=== PATIENT | female | born 2000 | race Hispanic/Latino ===

== ENCOUNTER 2024-12-17 15:33 | Emergency (ER) | payer SELFPAY ==
[2024-12-17 15:34] VITALS: BP 112/70; PULSE 78; RESP 18; TEMP 35.9; O2SAT 100; BMI 20.1
--- NOTE | 2024-12-17 16:42 | EX.ED.DYSGE1 ---
HPI History of Present Illness Chief Complaint: Lower Extremity Injury Narrative Narrative: Chief complaint and HPI: Left knee pain. 24-year-old female who is [place]-speaking without any past medical history presents for evaluation of left knee pain. Patient has close contact in the room translating. She declined official spud grader. Patient states that she has been having left knee pain after her accidentally laid down on it last night while sleeping. She states that he did not know she was in the bed. Triage note states that the patient is feeling paresthesias however she denies any paresthesias, numbness/tingling, weakness. Review of systems: See HPI Medications: As listed on the chart Allergies: As listed on the chart PFSH: Per chart Vital signs: As listed on the chart. Reviewed. Physical exam: Gen: A&O x3, NAD Head: Normocephalic, atraumatic Eyes: No sclera icterus, conjunctiva clear ENT: Moist mucous membranes CV: Regular rate Resp: Nonlabored respirations Musc: Full ROM of all the extremities including the left lower extremity, no deformity, left knee mildly tender to palpation over the patella where there is a small area of ecchymosis, no crepitus/erythema/warmth, no knee instability, compartments soft, good capillary refill, DP/PT pulses +2 bilaterally, strength+5/5 in all extremities Skin: Warm, dry Neuro: Alert, oriented, grossly intact, sensation intact Psych: Cooperative, appropriate mood and affect PFS PFS Medical History no medical history Home Medications ?Medication ?Instructions ?Recorded ?Last Taken ?Type NK 12/17/24 Unknown History Allergy/AdvReac Type Severity Reaction Status Date / Time No Known Allergies Allergy Verified 12/17/24 15:33 Family History no significant family his Surgical History no surgical history Social History Smoking Status: Never smoker EXAM Physical Exam Const Vital Signs: 12/17/24 15:34 Temperature 96.6 F L Temperature Source Temporal Pulse Rate 78 Respiratory Rate 18 Blood Pressure 112/70 Blood Pressure Mean 84 Pulse Ox 100 Oxygen Delivery Method Room Air MDM MDM MDM Narrative Medical decision making narrative: 24-year-old female who is [place]-speaking without any past medical history presents for evaluation of left knee pain. Patient has close contact in the room translating. She declined official spud grader. Patient states that she has been having left knee pain after her accidentally laid down on it last night while sleeping. Triage note states that the patient is feeling paresthesias however she denies any paresthesias, numbness/tingling, weakness. See physical exam findings. Suspect contusion however cannot rule out fracture without x-ray of the knee. X-ray of the knee ordered. X-ray of the left knee was personally viewed interpreted by me, ED physician. No fracture or dislocation. Radiology in agreement. Patient's pain is likely secondary to knee contusion. Motrin and Tylenol as needed for pain. Follow-up with primary care physician. Patient confirmed understanding of plan. Patient stable discharge home. Impression: 1. Left knee contusion Radiography Diagnostic Testing: Clinical Impression(s) from Imaging Studies Knee X-Ray 12/17/24 16:45 IMPRESSION: Unremarkable left knee radiographs. Reading Location: [id number] Discharge Plan Triage Chief Complaint: Lower Extremity Injury ED Provider: Jemal Jaime Dx/Rx/DC Orders Prescriptions: No Action NK Primary Care Provider: Care Physician,No Primary Referrals: NOT,DEFINED [Non-Staff] - Print Language: [place]
--- NOTE | 2024-12-17 16:45 | RAD_ITS ---
PROCEDURE: LEFT KNEE 4 OR MORE VIEWS 12/17/2024 REASON FOR EXAM: PAIN- MOSTLY AT [place]LLA TECHNIQUE: LEFT KNEE 4 OR MORE VIEWS COMPARISON: None. FINDINGS: No acute fracture or dislocation. Alignment is anatomic. Well preserved joint spaces. No joint effusion. Normal bone mineralization. No soft tissue swelling or radiopaque foreign body. RAD/Knee 4 or More Views IMPRESSION: Unremarkable left knee radiographs. Reading Location: [id number]
[2024-12-17 17:43] VITALS: BP 93/60; PULSE 78; RESP 18; TEMP 35.9; O2SAT 100
== END 2024-12-17 17:46 | disposition home or self-care (01) ==
PROVIDERS: Emergency Provider Surgery; Visit Provider Surgery
DX: S80.02XA Contusion of left knee, initial encounter (principal); X58.XXXA Exposure to other specified factors, initial encounter
CPT/HCPCS: 73564; 99282